=== PATIENT | female | born 1950 | race Hispanic/Latino ===

== ENCOUNTER 2022-06-19 08:00 | Day surgery (SDC) | payer OTHER ==
[2022-06-18 14:32] VITALS: BP 118/59
[2022-06-18 14:57] LABS: BASOPHILS % (AUTO) 0.6 % (0.0-5.0); EOSINOPHILS % (AUTO) 5.8 % (0.0-8.0); HEMATOCRIT 39.4 % (36-48); LYMPHOCYTES % (AUTO) 22.8 % (21.0-51.0); MEAN CORPUSCULAR HEMOGLOBIN 31.2 pg (27.0-33.0); MEAN CORPUSCULAR VOLUME 97.5 fL (79-99); NEUTROPHILS % (AUTO) 62.3 % (40.0-77.0); PLATELET COUNT (AUTO) 270 K/uL (130-400); RED BLOOD CELL COUNT(AUTO) 4.04 MIL/uL (4.00-5.50); RED CELL DISTRIBUTION WIDTH 13.3 % (11.0-15.5); WHITE BLOOD COUNT (AUTO) 11.1 K/uL (4.8-10.8)
[2022-06-18 15:11] LABS: INR 0.93 (0.85-1.15); PROTHROMBIN TIME 10.2 SEC (9.6-11.6)
[2022-06-18 15:13] LABS: PARTIAL THROMBOPLASTIN TIME 26.2 SEC (26.3-35.5)
[2022-06-18 15:24] LABS: CREATININE 0.9 mg/dL (0.5-1.5); POTASSIUM 4.1 mmol/L (3.5-5.1)
[2022-06-18 15:33] LABS: B-TYPE NATRIURETIC PEPTIDE 41 pg/mL (0-100)
[~2022-06-19] VITALS: Ht 160 cm; Wt 66.0 kg
[2022-06-19] VITALS (10 sets, daily range): BP systolic 112–144; BP diastolic 56–66
[~2022-06-19 08:00] MED LIST: 0.9% NACL 500ML IV.SOLN 500 ML IV SCH; AEC81 PO; ATOR40TA69 PO; TICA90TA PO
[2022-06-19] MEDS ORDERED: FENTANYL CITRATE PF 50 MCG/1 ML 2ML VIAL ONE (09:45)
[2022-06-19] MEDS ORDERED: MIDAZOLAM HCL 1 MG/ML 2ML VIAL ONE (09:45)
[2022-06-19] MEDS ORDERED: LIDOCAINE HCL 1% 20 ML VIAL ONE (09:45)
[2022-06-19] MEDS ORDERED: HEPARIN 10,000 UNIT/10ML (1,000 UNIT/ML) VIAL ONE (09:45)
[2022-06-19] MEDS ORDERED: NITROGLYCERIN 50MG VIAL ONE (09:45)
[2022-06-19] MEDS ORDERED: IOHEXOL 350 MG/ML 100ML INFUS..BTL IV ONE ×2 (09:45→10:44)
[2022-06-19] MEDS ORDERED: NITROGLYCERIN 4.1 GM SPRAY TL ONE (11:10)
[2022-06-19] MEDS ORDERED: TICAGRELOR 90 MG TABLET ONE (11:14)
[2022-06-19] MEDS ORDERED: LEVO75CA5 PO (11:23)
[2022-06-19] MEDS ORDERED: METO-408 PO (11:23)
[2022-06-19] MEDS ORDERED: 0.9%NACL 1000ML 1,000 ML IV SCH (12:00)
[2022-06-19] MEDS ORDERED: DEXTROSE 50%-WATER 50 ML DISP.SYRIN IV PRN (12:00)
[2022-06-19] MEDS ORDERED: GLUCAGON 1MG KIT 1 MG ML IM PRN (12:00)
== END 2022-06-19 16:00 | disposition home or self-care (01) ==
LOC: DAH 08:00
PROVIDERS: ATTEND Internal Medicine Cardiovascular Disease
DX: I25.119 Atherosclerotic heart disease of native coronary artery with unspecified angina pectoris (principal); E78.5 Hyperlipidemia, unspecified; I25.2 Old myocardial infarction; Z98.890 Other specified postprocedural states; Z90.710 Acquired absence of both cervix and uterus; Z82.49 Family history of ischemic heart disease and other diseases of the circulatory system; Z83.3 Family history of diabetes mellitus; Z87.891 Personal history of nicotine dependence; Z79.899 Other long term (current) drug therapy; Z79.01 Long term (current) use of anticoagulants
CPT/HCPCS: 80048; 83880; 85025; 85610; 85730; 36415; 71045; 93005; 85347; 93454; C9600; C1894 ×2; C1760; C1887; C1874 ×2; C1769; C1725 ×2; J3010; J1644 ×2; J2250; J3490; Q9967 ×2; A4215; A4222; A4221; A4663; A4216; A4606; Q9965 ×2; A4223 ×3; 96360; 96361; 99156; 99157

== ENCOUNTER → 2023-12-22 | Outpatient (CLI) | payer OTHER ==
[~2023-12-22] MED LIST changes: -0.9% NACL 500ML IV.SOLN 500 ML IV SCH; +LEVO75CA5 PO; +METO-408 PO
== END | disposition home or self-care (01) ==
LOC: RAH 14:50
PROVIDERS: ATTEND Internal Medicine
DX: Z78.0 Asymptomatic menopausal state (principal); M81.8 Other osteoporosis without current pathological fracture
CPT/HCPCS: 77080

== ENCOUNTER → 2024-02-23 | Outpatient (CLI) | payer OTHER | END | disposition home or self-care (01) | LOC: RAH 13:15 | PROVIDERS: ATTEND Internal Medicine | DX: N28.1 Cyst of kidney, acquired (principal) | CPT/HCPCS: 76700 ==

== ENCOUNTER → 2025-04-19 | Outpatient (CLI) | payer OTHER ==
[~2025-04-19] MED LIST changes: +IOHEXOL-350 75 ML VIAL IV ONE; -LEVO75CA5 PO; +LEVO75CA6 PO
--- NOTE | 2025-04-20 12:12 | HMCIMG ---
EXAM: CT Abdomen and Pelvis with and without IV contrast CLINICAL HISTORY: RLQ ABDOMINAL PAIN TECHNIQUE: Axial computed tomography images of the abdomen and pelvis with and without intravenous contrast. CONTRAST: with and without intravenous contrast. COMPARISON: None provided. FINDINGS: LUNG BASES: Dependent airway disease along bilateral lower lobes, presumed to represent basal atelectasis. No pleural effusions are seen. Focal herniation of the fat along the gastroesophageal junction. LIVER: 2.7 x 2.1 cm hypodense cyst in the right lobe of the liver. GALLBLADDER AND BILE DUCTS: The gallbladder appears within normal limits. No radioopaque gallstones are seen. No biliary ductal dilatation is evident. PANCREAS: Unremarkable. SPLEEN: Unremarkable. ADRENAL GLANDS: Unremarkable. KIDNEYS, URETERS, AND BLADDER: The kidneys appear within normal limits. There is no hydronephrosis or hydroureter. No urinary calculi are seen. STOMACH AND BOWEL: Colonic diverticulosis without diverticulitis. Unremarkable appearance of the stomach and small bowel. No evidence of bowel obstruction. No evidence suggesting enteritis or colitis. APPENDIX: Normal appendix. PERITONEUM: No free fluid. No free air. LYMPH NODES: No lymphadenopathy is evident. REPRODUCTIVE: The uterus is not well visualized. VASCULATURE: Atherosclerotic changes in the form of eccentric vessel wall calcification in the abdominal aorta and its major branches. No evidence of abdominal aortic aneurysm. BONES: Degenerative changes in the visualized spine in the form of marginal osteophytes, vacuum disc phenomenon, and degenerative discs at multiple lumbar levels. No aggressive appearing osseous lesion. No acute osseous pathology is evident. IMPRESSION: 1. No acute intra-abdominal or pelvic pathology. /[place]
== END | disposition home or self-care (01) ==
LOC: RAH 09:05
PROVIDERS: ATTEND Internal Medicine
DX: K57.30 Diverticulosis of large intestine without perforation or abscess without bleeding (principal); I70.0 Atherosclerosis of aorta; K76.89 Other specified diseases of liver; R10.31 Right lower quadrant pain; M47.816 Spondylosis without myelopathy or radiculopathy, lumbar region
CPT/HCPCS: 74178; Q9967

== ENCOUNTER → 2025-05-12 | Outpatient (CLI) | payer OTHER ==
[~2025-05-12] MED LIST changes: -IOHEXOL-350 75 ML VIAL IV ONE
--- NOTE | 2025-05-12 16:56 | HMCIMG ---
EXAM : US PELVIS NON-OB COMP Comparison: Comparison is made with the exam dated 04/19/25. Clinical History: Right lower quadrant abdominal pain. Technique: Transabdominal pelvic ultrasound (complete) with image documentation. Findings: Endometrium: Not applicable due to post-hysterectomy status. Uterus/Cervix: Status post hysterectomy. The pelvic region appears within normal limits. Right Ovary: Not visualized. The right adnexa appears within normal limits. Left Ovary: Not visualized. The left adnexa appears within normal limits. Free Fluid: No free fluid is detected in the cul-de-sac. IMPRESSION: 1. No acute pelvic pathology. /[place]
== END | disposition home or self-care (01) ==
LOC: RAH 10:02
PROVIDERS: ATTEND Internal Medicine
DX: R10.31 Right lower quadrant pain (principal); Z90.710 Acquired absence of both cervix and uterus
CPT/HCPCS: 76856